=== PATIENT | female | born 2000 | race Caucasian/White ===

== ENCOUNTER 2022-11-29 19:48 | Emergency (ER) | payer BC ==
--- NOTE | 2022-11-29 20:17 | ERPHSYRPT ---
- History of Present Illness Time Seen by Provider: 11/29/22 20:02 Patient Subjective Stated Complaint: R elbow pain Triage Nursing Assessment: pt to ED c/o R elbow pain r/t fall out of truck in which she landed on bent eblow. pt rates 8/10 pain now and has limited ROM. no loss sensation distal to injury. pain radiates into upper arm. Physician History: 22 years old female presented in the ER with chief complaint of right elbow pain after she slid on ice while getting out of truck and landed on right elbow. Did not hit her head or injury anywhere else. This happened prior to arrival with moderate to severe sharp pain with movements of elbow and olecranon area. No obvious swelling. No numbness tingling/weakness distally Allergies/Adverse Reactions: petrolatum,white [From Petroleum Jelly] Allergy (Verified 11/29/22 19:55) Hives Home Medications: Sertraline HCl 50 mg [Zoloft 50 mg Tablet] 50 mg PO DAILY 11/29/22 [History] Valacyclovir HCl [Valtrex] 500 mg PO DAILY 11/29/22 [History] Hx Tetanus, Diphtheria Vaccination/Date Given: Yes Hx Influenza Vaccination/Date Given: Yes Hx Pneumococcal Vaccination/Date Given: No Immunizations Up to Date: Yes Travel Risk - International Travel Have you traveled outside of the country in past 3 weeks: No - Coronavirus Screening Are you exhibiting any of the following symptoms?: No Close contact with a COVID-19 positive Pt in past 14-21 Days: No - Vaccine Status Have you recieved a Covid-19 vaccination: Yes [employer]: [employer] - Vaccination Dates Date of 2cond Vaccination (if applicable): 2020 - Review of Systems Constitutional: No Symptoms Ears, Nose, & Throat: No Symptoms Respiratory: No Symptoms Cardiac: No Symptoms Abdominal/Gastrointestinal: No Symptoms Musculoskeletal: Fall, Injury Skin: No Symptoms Neurological: No Symptoms Endocrine: No Symptoms Hematologic/Lymphatic: No Symptoms - Past Medical History Pertinent Past Medical History: Yes Psycho-Social History: Depression - Past Surgical History Past Surgical History: Yes Other Surgical History: wisdom teeth - Social History Smoking Status: Never smoker Exposure to second hand smoke: No Drug Use: none Patient Lives Alone: No - Female History Hx Now: No (nexplanon) - Nursing Vital Signs Nursing Vital Signs: Initial Vital Signs Temperature 99.2 F 11/29/22 19:56 Pulse Rate 88 11/29/22 19:56 Respiratory Rate 18 11/29/22 19:56 Blood Pressure 126/82 11/29/22 19:56 O2 Sat by Pulse Oximetry 98 11/29/22 19:56 Pain Scale Pain Intensity 8 - Physical Exam General Appearance: no apparent distress, alert Eyes, Ears, Nose, Throat Exam: normal ENT inspection Neck Exam: normal inspection Cardiovascular/Respiratory Exam: normal breath sounds, regular rate/rhythm Abdominal Exam: non-tender, no hernia Back Exam: normal inspection, normal range of motion Shoulder Exam: normal inspection, no evidence of injury Elbow/Forearm Exam: normal inspection, bone tenderness, limited ROM (Right elbow with olecranon area tenderness) Wrist Exam: normal inspection, non-tender, no evidence of injury, normal ROM Hand Exam: normal inspection, non-tender, no evidence of injury, normal ROM Neuro/Tendon Exam: normal sensation, normal motor functions Mental Status Exam: alert, oriented x 3, cooperative Skin Exam: normal color SpO2 Interpretation: normal SpO2: 98 O2 Delivery: Room Air Ordered Tests: Active Orders 24 hr Category Date Time Status ELBOW (MINIMUM 3 VIEWS) Stat Exams 11/29/22 20:17 Taken Medication Summary Discontinued Medications Generic Name Dose Route Start Last Admin Trade Name Cherie PRN Reason Stop Dose Admin Ketorolac Tromethamine 30 mg 11/29/22 20:20 Ketorolac Tromethamine 30 Mg/Ml Inj IM 11/29/22 20:21 STAT ONE - Progress Progress: pain not gone completely Progress Note: 11/29/22 20:29 22 years old is evaluated for right elbow pain after she fell on it while getting out of the truck prior to arrival. She is complaining of moderate to severe pain, intact passive range of motion. Distal neurovascular intact. Tenderness in the olecranon area. No obvious swelling. No crepitus. Given Toradol for symptomatic relief. X-rays reviewed by me did not reveal any obvious fracture dislocation, official report is pending. Placed in a sling and outpatient orthopedics follow-up recommended along with Tylenol/ibuprofen for symptomatic relief. Counseled pt/family regarding: diagnosis, need for follow-up, rad results - Departure Departure Disposition: Home Clinical Impression: Contusion of elbow, right Condition: Stable Critical Care Time: No Referrals: PORFIRIO FAUST [Primary Care Provider] - Follow Up with PCP/3 days CORNEL - SAVANNA DO NP [NON-STAFF PHY W/O PRIVILEGES] - Follow up/PCP as directed (1-2 days for reevaluation) Instructions: Contusion (DC) Additional Instructions: Intermittent ice application. Tylenol/ibuprofen as needed for pain. Avoid exertional activities with right upper extremity. Follow-up with orthopedic surgery for reevaluation. Return to ER for any worsening. Prescriptions: Ibuprofen 600 mg PO Q6HPRN PRN 10 Days #20 tablet PRN Reason: Pain
[2022-11-29] MEDS ORDERED: TORAdol 30 mg Injection IM ONE (20:20)
[2022-11-29] MEDS ORDERED: TORAdol 30 mg Injection ONE (20:41)
[2022-11-29 20:55] VITALS: BP 114/82; PULSE 79; O2SAT 99
--- NOTE | 2022-11-30 08:39 | XRAY ---
Indication: Pain following fall. Comparison: None 3 view right elbow obtained. No bony, articular, or soft tissue abnormalities.
== END 2022-11-29 21:15 | disposition home or self-care (01) ==
LOC: ED 19:48
DX: S50.01XA Contusion of right elbow, initial encounter (principal); W00.0XXA Fall on same level due to ice and snow, initial encounter; Z79.899 Other long term (current) drug therapy
CPT/HCPCS: 73080; 96372; 99283; J1885